=== PATIENT | female | born 1975 | race Caucasian/White ===

== ENCOUNTER 2017-07-09 19:24 | Emergency (ER) | payer BC ==
[~2017-07-09] VITALS: Ht 160 cm; Wt 54.4 kg
[2017-07-09] MEDS ORDERED: TRAZ-144 PO (19:56)
[2017-07-09] MEDS ORDERED: LIDOCAINE 1%-EPI 1:100,000 20 ML VIAL ONE (20:13)
[2017-07-09] MEDS ORDERED: CEPHALEXIN MONOHYDRATE 500 MG CAPSULE PO ONE (20:15)
[2017-07-09] MEDS ORDERED: LIDOCAINE 1%-EPI 1:100,000 20 ML VIAL TP ONE (20:15)
[2017-07-09] MEDS ORDERED: CEPHALEXIN MONOHYDRATE 500 MG CAPSULE ONE (20:18)
[2017-07-09 21:23] VITALS: BP 108/74
--- NOTE | 2017-07-09 21:24 | NUR ---
MSE COMPLETED, DR FAY SUTURED SITE, DRESSING PLACED, PT REFUSED KEFLEX PO, DR FAY AWARE. PT WAS D/C'D ACI/RX X1 GIVEN. PT AMBULATED W/O DIFF/TOOK ALL BELONGINGS.
== END 2017-07-09 21:20 | disposition home or self-care (01) ==
LOC: ER 19:25
DX: S51.811A Laceration without foreign body of right forearm, initial encounter (principal); Z88.6 Allergy status to analgesic agent; Z79.891 Long term (current) use of opiate analgesic; W26.8XXA Contact with other sharp object(s), not elsewhere classified, initial encounter; Y93.89 Activity, other specified; Y92.89 Other specified places as the place of occurrence of the external cause; Y99.8 Other external cause status
CPT/HCPCS: A4217; A4663; J3490